=== PATIENT | male | born 1990 | race Caucasian/White ===

== ENCOUNTER 2017-11-22 12:07 | Day surgery (SDC) | payer BC, OTHER ==
[2017-11-22] MEDS ORDERED: Sodium Chloride 0.9% 10 ML Syringe FLUSH PRN (12:25)
[2017-11-22] MEDS ORDERED: Ondansetron 4 MG/2 ML SDV IVPUSH PRN (13:30)
[2017-11-22] MEDS: Lactated Ringers 1,000 ML IV SCH ×2 (13:35→23:07)
[2017-11-22] MEDS: cefOXitin 2 GM in Sodium Chloride 0.9% 100 ML IV SCH ×2 (13:35→19:09)
[2017-11-22] MEDS ORDERED: HYDROmorphone 2 MG/ML SDV IVPUSH ONE (13:39)
[2017-11-22] MEDS ORDERED: Ketorolac 30 MG/ML SDV IVPUSH ONE (13:42)
[2017-11-22] MEDS ORDERED: Ondansetron 4 MG/2 ML SDV IVPUSH ONE (17:15)
[2017-11-22] MEDS ORDERED: fentaNYL 100 MCG/2 ML SDV IV ONE (17:15)
[2017-11-22] MEDS ORDERED: Midazolam 1 MG/ML 2 ML SDV IV ONE (17:15)
[2017-11-22] MEDS ORDERED: Propofol 200 MG/20 ML SDV IV ONE (17:15)
[2017-11-22] MEDS ORDERED: Succinylcholine 200 MG/10 ML MDV IV ONE (17:15)
[2017-11-22] MEDS ORDERED: Lactated Ringers 1,000 ML IV ONE (17:15)
[2017-11-22] MEDS ORDERED: Dexamethasone 4 MG/ML 5 ML MDV IVPUSH ONE (17:15)
[2017-11-22] MEDS ORDERED: Rocuronium 100 MG/10 ML MDV IV ONE (17:15)
[2017-11-22] MEDS ORDERED: Bupivacaine 0.5% 30 ML SDV INFILT ONE (17:28)
[2017-11-22] MEDS ORDERED: Lidocaine 1% with EPINEPHrine 1:100,000 20 ML MDV INFILT ONE (17:28)
[2017-11-22] MEDS ORDERED: HYDROmorphone 2 MG/ML SDV IVPUSH PRN (18:08)
--- NOTE | 2017-11-22 18:13 | PCM.OPNOTE ---
- General Post-Op/Procedure Note Date of Surgery/Procedure: 11/22/17 Operative Procedure(s): lap appendectomy Findings: enlarged appendix Pre Op Diagnosis: acute appendicitis Post-Op Diagnosis: Same Anesthesia Technique: General ET Tube, Local (8 ml 1 % lido with epi/0.5% buvipicaine) Primary Surgeon: Duarte East Anesthesia Provider: Geo Mosley Pathology: appendix Complications: None Condition: Good Free Text/Narrative:: see dictation Intake & Output
[2017-11-22] MEDS: Ketorolac 30 MG/ML SDV IVPUSH SCH (19:52)
--- NOTE | 2017-11-23 00:05 | OR ---
DATE OF OPERATION: 11/22/2017 SURGEON: Duarte East MD PROCEDURE PERFORMED: Laparoscopic appendectomy. PREOPERATIVE DIAGNOSIS: Acute appendicitis. POSTOPERATIVE DIAGNOSIS: Acute appendicitis. INDICATIONS FOR PROCEDURE: This is a 27-year-old white male who presented today with an onset of right lower quadrant abdominal pain, was noted to have tenderness in the right lower quadrant, as well as leukocytosis. CT scan demonstrated findings consistent with an early appendicitis and he was offered and accepted a laparoscopic appendectomy. DESCRIPTION OF PROCEDURE: After an excellent general endotracheal anesthetic was administered, the patient was prepped and draped in the usual sterile manner. A 1:1 mixture of 1% lidocaine with epinephrine and 0.5% bupivacaine was used to infiltrate the patient's skin just below the umbilicus. A small vertical midline incision was carried out with a #15 scalpel blade. Two stay sutures were placed on either side of the midline fascia, which was then elevated, the midline fascia was incised, and the abdominal cavity was entered. After palpation to ensure no adhesions, a 10.5 mm Dioni trocar was inserted. The patient's abdomen was then insufflated to 15 mmHg with carbon dioxide. The patient was placed in Trendelenburg position with an airplane toward the left and two 5 mm ports were placed one below the umbilical port in the midline and one in the right lower quadrant. Inflamed gallbladder was grasped and retracted. A mesoappendix was then identified. This was divided with two passes of the 3.5 mm Endo-DIAN exposing the base of the appendix. There was some bleeding along the staple line, which was controlled with several clip placement. The appendix was transected at its base with an additional 3.5 mm Endo-DIAN load. The specimen was passed into a bag and delivered out through the umbilical port. The area was irrigated and after ensuring excellent hemostasis, the pneumoperitoneum was released. The umbilical defect was closed with a [id number] 0 Vicryl and the 2 stay sutures were tied to each other. The skin was stapled shut. Needle, sponge, and instrument counts were reported as correct. The patient was taken to recovery room in good condition. /[id number] 0000 /MODL
[2017-11-23] MEDS: cefOXitin 2 GM in Sodium Chloride 0.9% 100 ML IV SCH ×3 (00:47→12:40)
[2017-11-23] MEDS: Ketorolac 30 MG/ML SDV IVPUSH SCH ×2 (02:05→07:54)
[2017-11-23] MEDS ORDERED: Acetaminophen/HYDROcodone 325-10 MG Tab PO PRN (07:48)
[2017-11-23] MEDS: Lactated Ringers 1,000 ML IV SCH (07:55)
--- NOTE | 2017-11-23 11:46 | PCM.SURGPN ---
- General Info Date of Service: 11/23/17 POD#: 1 Functional Status: Reports: Pain Controlled, Tolerating Diet, Ambulating, Urinating - Review of Systems Pulmonary: Reports: No Symptoms Cardiovascular: Reports: No Symptoms Gastrointestinal: Reports: Abdominal Pain - Patient Data Vitals - Most Recent: Last Vital Signs Temp 36.6 C 11/23/17 08:00 Pulse 70 11/23/17 08:00 Resp 18 11/23/17 08:00 BP 120/70 11/23/17 08:00 Pulse Ox 98 11/23/17 08:00 Weight - Most Recent: 131.088 kg I&O - Last 24 Hours: Intake & Output 11/22/17 11/23/17 11/23/17 22:59 06:59 14:59 Intake Total 1100 Output Total 350 Balance 750 Lab Results Last 24 Hrs: Laboratory Results - last 24 hr 11/23/17 Range/Units 06:30 WBC 12.0 (4.5-12.0) X10-3/uL RBC 4.55 (4.30-5.75) x10(6)uL Hgb 13.2 (11.5-15.5) g/dL Hct 38.6 (30.0-51.3) % MCV 85.0 (80-96) fL MCH 29.1 (27.7-33.6) pg MCHC 34.2 (32.2-35.4) g/dL RDW 12.4 (11.5-15.5) % Plt Count 308 (125-369) X10(3)uL MPV 7.6 (7.4-10.4) fL Neut % (Auto) 80.5 (46-82) % Lymph % (Auto) 12.1 L (13-37) % [place] % (Auto) 7.0 (4-12) % Eos % (Auto) 0 L (1.0-5.0) % Baso % (Auto) 0 (0-2) % Neut # (Auto) 9.7 H (1.6-8.3) # Lymph # (Auto) 1.5 (0.6-5.0) # [place] # (Auto) 0.8 (0.0-1.3) # Eos # (Auto) 0.0 (0.0-0.8) # Baso # (Auto) 0.0 (0.0-0.2) # Med Orders - Current: Current Medications Hydrocodone Bitart/Acetaminophen ([place] 325-10 Mg) 2 tab PO Q4H PRN PRN Reason: Pain Hydromorphone HCl (Dilaudid) 1 mg IVPUSH Q2H PRN PRN Reason: Pain Cefoxitin Sodium 2 gm/ Sodium (Chloride) 100 mls @ 200 mls/hr IV Q6H [facility] Last Admin: 11/23/17 07:10 Dose: 200 mls/hr Lactated Ringer's (Ringers, Lactated) 1,000 mls @ 125 mls/hr IV ASDIRECTED [facility] Last Admin: 11/23/17 07:55 Dose: 125 mls/hr Ketorolac Tromethamine (Toradol) 30 mg IVPUSH Q6H [facility] Stop: 11/27/17 20:01 Last Admin: 11/23/17 07:54 Dose: 30 mg Ondansetron HCl (Zofran) 4 mg IVPUSH Q4H PRN PRN Reason: Nausea/Vomiting Last Admin: 11/22/17 13:58 Dose: 4 mg Sodium Chloride (Saline Flush) 10 ml FLUSH ASDIRECTED PRN PRN Reason: Keep Vein Open Discontinued Medications Bupivacaine HCl (Marcaine 0.5%) 6 ml INFILT .STK-MED ONE Stop: 11/22/17 17:29 Last Admin: 11/22/17 17:28 Dose: 6 ml Hydromorphone HCl (Dilaudid) 1 mg IVPUSH ONETIME ONE Stop: 11/22/17 13:40 Last Admin: 11/22/17 13:50 Dose: 1 mg Ketorolac Tromethamine (Toradol) 30 mg IVPUSH ONETIME ONE Stop: 11/22/17 13:43 Last Admin: 11/22/17 13:55 Dose: 30 mg Lidocaine/Epinephrine (Xylocaine 1% With Epinephrine 1:100,000) 6 ml INFILT .STK-MED ONE Stop: 11/22/17 17:29 Last Admin: 11/22/17 17:28 Dose: 6 ml - Exam Wound/Incisions: Dressing Dry and Intact Lungs: Clear to Auscultation, Normal Respiratory Effort Cardiovascular: Regular Rate, Regular Rhythm GI/Abdominal Exam: Normal Bowel Sounds, Soft, Non-Tender - Problem List & Annotations (1) Acute appendicitis SNOMED Code(s): 63618599 Code(s): K35.80 - UNSPECIFIED ACUTE APPENDICITIS Status: Acute Current Visit: Yes - Problem List Review Problem List Initiated/Reviewed/Updated: Yes - My Orders Last 24 Hours: Active Orders 24 hr Category Date Time Status Admission Status [Patient Status] [ADT] Routine ADT 11/22/17 12:15 Active IS (RT) [RT Incentive Spirometry] [RC] Q2HWA Care 11/22/17 18:08 Active Ready for Discharge [RC] PER UNIT ROUTINE Care 11/23/17 11:45 Ordered Clear Liquid Diet [DIET] Diet 11/23/17 Breakfast Ordered Acetaminophen/HYDROcodone [[place] 325-10 MG] Med 11/23/17 07:48 Active 2 tab PO Q4H PRN HYDROmorphone [Dilaudid] Med 11/22/17 18:08 Active 1 mg IVPUSH Q2H PRN Ketorolac [Toradol] Med 11/22/17 20:00 Active 30 mg IVPUSH Q6H Lactated Ringers [Ringers, Lactated] 1,000 ml Med 11/22/17 12:30 Active IV ASDIRECTED Ondansetron [Zofran] Med 11/22/17 13:30 Active 4 mg IVPUSH Q4H PRN Sodium Chloride 0.9% [Saline Flush] Med 11/22/17 12:25 Active 10 ml FLUSH ASDIRECTED PRN cefOXitin [Mefoxin] 2 gm Med 11/22/17 12:30 Active Sodium Chloride 0.9% [Normal Saline] 100 ml IV Q6H Peripheral IV Insertion Adult [OM.PC] Routine Oth 11/22/17 12:25 Ordered Sequential Compression Device [OM.PC] Routine Oth 11/22/17 12:25 Ordered Resuscitation Status Routine Resus Stat 11/22/17 12:25 Ordered Medication Orders Hydrocodone Bitart/Acetaminophen ([place] 325-10 Mg) 2 tab PO Q4H PRN PRN Reason: Pain Hydromorphone HCl (Dilaudid) 1 mg IVPUSH Q2H PRN PRN Reason: Pain Cefoxitin Sodium 2 gm/ Sodium (Chloride) 100 mls @ 200 mls/hr IV Q6H [facility] Last Admin: 11/23/17 07:10 Dose: 200 mls/hr Admin: 11/23/17 00:47 Dose: 200 mls/hr Admin: 11/22/17 19:09 Dose: 200 mls/hr Admin: 11/22/17 13:35 Dose: 200 mls/hr Lactated Ringer's (Ringers, Lactated) 1,000 mls @ 125 mls/hr IV ASDIRECTED [facility] Last Admin: 11/23/17 07:55 Dose: 125 mls/hr Infusion: 11/23/17 07:07 Dose: 125 mls/hr Admin: 11/22/17 23:07 Dose: 125 mls/hr Infusion: 11/22/17 21:35 Dose: 125 mls/hr Admin: 11/22/17 13:35 Dose: 125 mls/hr Ketorolac Tromethamine (Toradol) 30 mg IVPUSH Q6H [facility] Stop: 11/27/17 20:01 Last Admin: 11/23/17 07:54 Dose: 30 mg Admin: 11/23/17 02:05 Dose: 30 mg Admin: 11/22/17 19:52 Dose: 30 mg Ondansetron HCl (Zofran) 4 mg IVPUSH Q4H PRN PRN Reason: Nausea/Vomiting Last Admin: 11/22/17 13:58 Dose: 4 mg Sodium Chloride (Saline Flush) 10 ml FLUSH ASDIRECTED PRN PRN Reason: Keep Vein Open - Assessment Assessment (Free Text/Narrative):: ready for discharge - Plan Plan (Free Text/Narrative):: see d/c plan
== END 2017-11-23 13:25 | disposition home or self-care (01) ==
LOC: FB.SDS 12:07 → FB.MS 12:07 → FB.SDS 11-23 13:25
PROVIDERS: ATTEND Surgery
DX: K35.80 Unspecified acute appendicitis (principal); Z79.899 Other long term (current) drug therapy
CPT/HCPCS: 36415; 44970; 74177; 85025; 88304; J0330; J0694; J1100; J1170; J1885; J2250; J2405; J2704; J3010; J7030; J7120; Q9967

== ENCOUNTER 2018-11-29 18:04 | Emergency (ER) | payer BC, OTHER ==
[2018-11-29] MEDS ORDERED: Lidocaine 1% PF 2 ML SDV INJECT ONE (18:05)
--- NOTE | 2018-11-29 19:57 | EDM.PDOC ---
ED HPI GENERAL MEDICAL PROBLEM - General Chief Complaint: Laceration Stated Complaint: CUT FINGER L HAND Time Seen by Provider: 11/29/18 19:54 Source of Information: Reports: Patient History Limitations: Reports: No Limitations - History of Present Illness INITIAL COMMENTS - FREE TEXT/NARRATIVE: Patient sustained a laceration [employer] to the left 3rd digit while cutting a sump pump tube with a knife. Patient is right hand dominant. Onset: Today Duration: Hour(s): (2) Location: Reports: Upper Extremity, Left Severity: Mild - Related Data Allergies Allergy/AdvReac Type Severity Reaction Status Date / Time No Known Allergies Allergy Verified 11/29/18 18:51 Home Meds: Home Meds Cephalexin [Keflex] 500 mg PO BID #14 capsule 11/29/18 [Rx] Past Medical History HEENT History: Reports: Impaired Vision Social & Family History - Family History Family Medical History: Noncontributory - Caffeine Use Caffeine Use: Reports: Soda ED ROS GENERAL - Review of Systems Review Of Systems: ROS reveals no pertinent complaints other than HPI. ED EXAM, SKIN/RASH Exam: See Below Exam Limited By: No Limitations General Appearance: Alert, No Apparent Distress Ears: Normal External Exam Nose: Normal Inspection Throat/Mouth: No Airway Compromise Head: Atraumatic, Normocephalic Respiratory/Chest: No Respiratory Distress Peripheral Pulses: 2+: Radial (L) Extremities: Other (1.5 cm laceration to left 3rd digit overlying distal phalanx ) Neurological: Alert, Normal Cognition, No Motor/Sensory Deficits Psychiatric: Normal Affect, Normal Mood Skin: Other (as above) ED SKIN PROCEDURES - Laceration/Wound Repair Left Digit - 3rd (Middle) Lac/Wound length In cm: 1.5 Appearance: Subcutaneous Distal NVT: Neuro & Vascular Intact Anesthetic Type: Local Local Anesthesia - Lidocaine (Xylocaine): 1% Plain Local Anesthetic Volume: 2cc Skin Prep: Chlorhexidine (Hibiciens) Closed with: Sutures Suture Size: 4-0 # of Sutures: 5 Suture Type: Nylon, Interrupted Course - Vital Signs Last Recorded V/S: Last Vital Signs Temp 37.0 C 11/29/18 18:45 Pulse 81 11/29/18 18:45 Resp 18 11/29/18 18:45 BP 122/65 11/29/18 18:45 Pulse Ox 96 11/29/18 18:45 - Orders/Labs/Meds Orders: Active Orders 24 hr Category Date Time Status Bacitracin [Bacitracin Oint 1 GM] Med 11/29/18 21:05 Once 1 dose TOP ONETIME ONE cephALEXin [Keflex] Med 11/29/18 21:05 Once 500 mg PO ONETIME ONE Departure - Departure Time of Disposition: 21:06 Disposition: Home, Self-Care 01 Condition: Good Clinical Impression: Laceration of finger of left hand Qualifiers: Encounter type: initial encounter Finger: middle finger Damage to nail status: without damage Foreign body presence: without foreign body Qualified Code(s): S61.213A - Laceration without foreign body of left middle finger without damage to nail, initial encounter - Discharge Information *PRESCRIPTION DRUG MONITORING PROGRAM REVIEWED*: No *COPY OF PRESCRIPTION DRUG MONITORING REPORT IN PATIENT JAIRO: Not Applicable Prescriptions: Cephalexin [Keflex] 500 mg PO BID #14 capsule Instructions: Laceration Care, Adult, [id number], Stitches, Leann, or Adhesive Wound Closure, [id number] Referrals: PCP,None [Primary Care Provider] - Forms: ED Department Discharge Additional Instructions: Fill prescription for Keflex and take as directed. Apply Bacitracin ointment daily. Follow up in 7 days for suture removal, sooner with symptoms or signs of infection. - My Orders Last 24 Hours: My Active Orders 11/29/18 21:05 Bacitracin [Bacitracin Oint 1 GM] 1 dose TOP ONETIME ONE cephALEXin [Keflex] 500 mg PO ONETIME ONE - Assessment/Plan Last 24 Hours: My Active Orders 11/29/18 21:05 Bacitracin [Bacitracin Oint 1 GM] 1 dose TOP ONETIME ONE cephALEXin [Keflex] 500 mg PO ONETIME ONE
[2018-11-29] MEDS ORDERED: Cephalexin 500 MG Cap PO ONE (21:05)
[2018-11-29] MEDS ORDERED: Bacitracin Oint 1 GM U/D Packet TOP ONE (21:05)
== END 2018-11-29 21:17 | disposition home or self-care (01) ==
LOC: FB.ED 18:04
DX: S61.213A Laceration without foreign body of left middle finger without damage to nail, initial encounter (principal); W26.0XXA Contact with knife, initial encounter
CPT/HCPCS: 12001; 99282; A9270; J2001; 12011